=== PATIENT | female | born 1955 | race Caucasian/White ===

== ENCOUNTER → 2018-01-16 | Outpatient (CLI) | payer BC ==
--- NOTE | 2018-01-16 18:22 | Diagnostic Imaging Report ---
TECHNIQUE: Magnetic resonance imaging of the RIGHT KNEE was performed WITHOUT injected contrast. Motion artifact partially limits sensitivity and specificity of the exam. HISTORY: Pain, swelling, reported history of scope COMPARISON: None available. FINDINGS: LIGAMENTS AND TENDONS: ACL: Intact PCL: Intact Collateral ligaments: Intact Iliotibial band: Unremarkable Popliteal tendon: Intact Extensor mechanism: Intact JOINT: Menisci: Medial: Contour irregularity and attenuation of the posterior horn and free margin of the body, results in peripheral extrusion of the remaining body. Lateral: Mild free margin attenuation and contour irregularity. Articular Cartilage: Medial Compartment: High-grade to full-thickness erosion of the weightbearing cartilage. Lateral Compartment: Superficial erosion of the weightbearing cartilage. Patellofemoral Compartment: Full-thickness erosion at the patellar apex and adjacent medial facet. Joint Fluid: Synovitis with associated moderate to large nonspecific joint effusion. BONES: No focal or infiltrative bone marrow replacing abnormality. No acute fracture. SOFT TISSUES: Otherwise, unremarkable. IMPRESSION: 1. 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 2. Reactive synovitis with associated joint effusion. Signed by: Dr. Hadley Maria D.O., M.M.M. on 01/16/2018 6:19 PM
== END ==
LOC: MRI 15:33
PROVIDERS: ATTEND Family Medicine
DX: M25.561 Pain in right knee (principal); M23.51 Chronic instability of knee, right knee